=== PATIENT | male | born 1950 | race African-American/Black ===

== ENCOUNTER 2018-02-16 11:26 | Emergency (ER) | payer OTHER ==
[~2018-02-16] VITALS: Ht 188 cm; Wt 103.0 kg
[2018-02-16 11:34] VITALS: Ht 188 cm; Wt 103.0 kg
[2018-02-16 13:31] VITALS: BP 134/67
== END 2018-02-16 13:31 | disposition home or self-care (01) ==
LOC: ED 11:26
DX: S93.522A Sprain of metatarsophalangeal joint of left great toe, initial encounter (principal); L03.032 Cellulitis of left toe; I10 Essential (primary) hypertension; W22.01XA Walked into wall, initial encounter; Y93.89 Activity, other specified; Y92.89 Other specified places as the place of occurrence of the external cause; Y99.8 Other external cause status
CPT/HCPCS: J1885; J2270; Q0162